=== PATIENT | male | born 1950 | race African-American/Black ===

== ENCOUNTER 2019-03-30 07:41 | Observation (INO) ==
[2019-03-30] MEDS ORDERED: ONDANSETRON 4 MG/2 ML VIAL IV STA (08:17)
[2019-03-30] MEDS ORDERED: SODIUM CHLORIDE 0.9% 1,000 ML IV STA (08:17)
[2019-03-30 08:24] LABS: Basophils % 0.3 % (0.0-0.8); Hematocrit 41.9 VOL% (42.0-52.0); Immature Granulocytes % 0.4 %; Immature Granulocytes Absolute 0.03 #; Lymphocytes # 0.8 10*3/uL (1.4-4.0); Lymphocytes % 10.2 % (21.2-54.2); Mean Corpuscular HGB Conc 33.4 GM/DL (32-36); Mean Corpuscular Volume 98.8 FL (87-102); Mean Platelet Volume 10.4 FL (9.6-12.0); Monocytes % 6.9 % (1.7-12.7); Neutrophils % 82.2 % (38.7-73.9); Platelet Count 177 T/CUMM (130-400); Red Blood Count 4.24 MC/CUMM (3.8-5.5); White Blood Count 7.4 T/CUMM (4-12)
[2019-03-30 08:42] LABS: Albumin 4.1 G/DL (3.4-5.0); Bilirubin,Total 0.4 MG/DL (0.2-1.0); Calcium 8.7 MG/DL (8.5-10.1); Osmolality,Calculated 270.4 MOS/KG (273-304); Total Protein 8.1 G/DL (6.4-8.3)
[2019-03-30 09:53] LABS: Apearance,Urine CLEAR (Clear); Bilirubin,Urine Negative (Negative); Blood, Urine Moderate mg/dL (Negative); Glucose,Urine (UA) >=500 mg/dL (Negative); Ketones,Urine 20 mg/dL (Negative); Mucus,Urine Occasional /LPF (Occasional); Nitrite,Urine Negative (Negative); Protein,Urine 30 MG/DL; RBC,Urine 3 /HPF (0-4); Squamous Epithelial Cell,Urine Occasional /HPF (0-10); Urine Color Yellow (Yellow); Urine Specific Gravity 1.026 (1.001-1.035); Urine Urobilinogen < 2.0 EU/DL (0.2-1.0); WBC,Urine <1 /HPF (0-6)
[2019-03-30] MEDS ORDERED: PROMETHAZINE 25 MG/1 ML VIAL IM STA (10:20)
[2019-03-30] MEDS ORDERED: MAGNESIUM SULF RIDER 4 GM in PREMIX 1 EACH IV PRN (10:33)
[2019-03-30] MEDS ORDERED: ONDANSETRON 4 MG/2 ML VIAL IV PRN (10:33)
[2019-03-30] MEDS ORDERED: MAGNESIUM SULF RIDER 2 GM in PREMIX 1 EACH IV PRN (10:33)
[2019-03-30] MEDS ORDERED: PROMETHAZINE 25 MG/1 ML VIAL IV PRN (10:33)
[2019-03-30] MEDS ORDERED: NICOTINE 21 MG/24 HR PATCH TRANSDERM PRN (10:33)
[2019-03-30] MEDS: hydroCHLOROthiazide 12.5 MG CAPSULE PO SCH (12:03)
[2019-03-30] MEDS: ASPIRIN EC 81 MG TABLET PO SCH (12:03)
[2019-03-30] MEDS: LOSARTAN 50 MG TABLET PO SCH (12:03)
[2019-03-30] MEDS: CIPROFLOXACIN INJ 400 MG in PREMIX 1 EACH IV SCH ×2 (12:05→22:56)
[2019-03-30] MEDS: DEXTROSE 5% NACL 0.45% 1,000 ML IV SCH (12:06)
[2019-03-30 13:04] LABS: Troponin I < 0.015 NG/ML (0.00-0.045)
[2019-03-30] MEDS: MORPHINE 4 MG/1 ML VIAL IV PRN ×2 (13:08→17:10)
[2019-03-30] MEDS: metroNIDAZOLE INJ 500 MG in PREMIX 1 EACH IV SCH ×2 (13:09→17:13)
[2019-03-30] MEDS ORDERED: hydrALAZINE 20 MG/1 ML VIAL IV PRN (13:27)
[2019-03-30] MEDS: PANTOPRAZOLE 40 MG VIAL IV SCH ×2 (14:07→21:06)
[2019-03-30 16:11] LABS: Troponin I 0.058 NG/ML (0.00-0.045)
[2019-03-30] MEDS ORDERED: ROSUVASTATIN 20 MG TABLET PO SCH (21:00)
[2019-03-31] MEDS: metroNIDAZOLE INJ 500 MG in PREMIX 1 EACH IV SCH ×2 (00:17→06:34)
[2019-03-31] MEDS: DEXTROSE 5% NACL 0.45% 1,000 ML IV SCH (04:01)
[2019-03-31 05:05] LABS: Basophils % 0.1 % (0.0-0.8); Hemoglobin 13.6 GM/DL (14.0-18.0); Immature Granulocytes % 0.3 %; Immature Granulocytes Absolute 0.03 #; Lymphocytes # 1.9 10*3/uL (1.4-4.0); Mean Corpuscular Volume 96.6 FL (87-102); Mean Platelet Volume 10.5 FL (9.6-12.0); Monocytes % 7.3 % (1.7-12.7); Neutrophils % 72.3 % (38.7-73.9); Platelet Count 163 T/CUMM (130-400); Red Blood Count 4.14 MC/CUMM (3.8-5.5); Red Cell Distribution Width 13.6 % (9.3-17.3); White Blood Count 9.7 T/CUMM (4-12)
[2019-03-31 05:38] LABS: Alanine Aminotransferase 36 U/L (16-61); Albumin 3.4 G/DL (3.4-5.0); Alkaline Phosphatase 60 U/L (45-117); Aspartate Amino Transferase 45 U/L (0-37); Bilirubin,Total < 0.39 MG/DL (0.2-1.0); Blood Urea Nitrogen 14 MG/DL (7-18); Calcium 8.4 MG/DL (8.5-10.1); Estimated Glom Filtration Rate 75 ML/MIN; Glucose 103 MG/DL (74-106); HDL Cholesterol 47 MG/DL (40-60); Osmolality,Calculated 268.2 MOS/KG (273-304); Risk Ratio 2.11; Total Protein 7.2 G/DL (6.4-8.3); Triglycerides 59 MG/DL (2-150); VLDL CHOLESTEROL 11.8 MG/DL
[2019-03-31 08:37] VITALS: BP 135/68
[2019-03-31] MEDS: PANTOPRAZOLE 40 MG VIAL IV SCH (08:44)
[2019-03-31] MEDS: ASPIRIN EC 81 MG TABLET PO SCH (08:44)
[2019-03-31] MEDS: hydroCHLOROthiazide 12.5 MG CAPSULE PO SCH (08:44)
[2019-03-31] MEDS: LOSARTAN 50 MG TABLET PO SCH (08:45)
== END 2019-03-31 10:06 | disposition home or self-care (01) ==
LOC: N.EDINP 07:41 → N.ED 07:41 → SUATTDRO 10:33 → N.EDINP 11:34 → N.2W 11:36
PROVIDERS: ADMIT Internal Medicine; ATTEND Internal Medicine

== ENCOUNTER 2019-04-01 00:04 | Observation (INO) ==
[2019-04-01] MEDS ORDERED: SODIUM CHLORIDE 0.9% 1,000 ML IV STA (00:50)
[2019-04-01] MEDS ORDERED: ONDANSETRON 4 MG/2 ML VIAL IV STA (00:50)
[2019-04-01] MEDS ORDERED: PANTOPRAZOLE 40 MG VIAL IV STA (00:50)
[2019-04-01 01:05] LABS: Basophils % 0.2 % (0.0-0.8); Hematocrit 43.2 VOL% (42.0-52.0); Hemoglobin 14.4 GM/DL (14.0-18.0); Immature Granulocytes % 0.5 %; Immature Granulocytes Absolute 0.05 #; Lymphocytes # 2.1 10*3/uL (1.4-4.0); Lymphocytes % 18.8 % (21.2-54.2); Mean Corpuscular HGB Conc 33.3 GM/DL (32-36); Mean Corpuscular Volume 99.1 FL (87-102); Mean Platelet Volume 10.1 FL (9.6-12.0); Monocytes % 8.1 % (1.7-12.7); Neutrophils % 72.4 % (38.7-73.9); Platelet Count 175 T/CUMM (130-400); Red Blood Count 4.36 MC/CUMM (3.8-5.5); Red Cell Distribution Width 13.4 % (9.3-17.3); White Blood Count 10.9 T/CUMM (4-12)
[2019-04-01] MEDS ORDERED: hydrALAZINE 20 MG/1 ML VIAL IV STA (01:05)
[2019-04-01] MEDS ORDERED: hydrALAZINE 20 MG/1 ML VIAL ONE (01:05)
[2019-04-01 01:24] LABS: Alanine Aminotransferase 42 U/L (16-61); Albumin 3.9 G/DL (3.4-5.0); Alkaline Phosphatase 64 U/L (45-117); Amylase 44 U/L (25-115); Aspartate Amino Transferase 61 U/L (0-37); Blood Urea Nitrogen 16 MG/DL (7-18); Calcium 8.9 MG/DL (8.5-10.1); Estimated Glom Filtration Rate 66 ML/MIN; Glucose 129 MG/DL (74-106); Osmolality,Calculated 266.5 MOS/KG (273-304); Total Protein 8.1 G/DL (6.4-8.3)
[2019-04-01] MEDS ORDERED: POTASSIUM CHLORIDE RIDER 20 MEQ in PREMIX 1 EACH IV STA ×2 (01:28→01:47)
[2019-04-01] MEDS ORDERED: POTASSIUM BICARB EFFERVESCENT 25 MEQ TABLET PO ONE (01:31)
[2019-04-01] MEDS ORDERED: DOCUSATE SODIUM 100 MG CAPSULE PO PRN (01:49)
[2019-04-01] MEDS ORDERED: PROMETHAZINE 25 MG/1 ML VIAL IM PRN (01:49)
[2019-04-01] MEDS ORDERED: NICOTINE 21 MG/24 HR PATCH TRANSDERM PRN (01:49)
[2019-04-01] MEDS ORDERED: ALBUTEROL 2.5 MG/3 ML NEB RESP TX PRN (01:49)
[2019-04-01] MEDS ORDERED: ACETAMINOPHEN 325 MG TABLET PO PRN (01:49)
[2019-04-01] MEDS ORDERED: guaiFENesin/DM ER 600-30 MG TABLET PO PRN (01:49)
[2019-04-01] MEDS ORDERED: diphenhydrAMINE CAP 25 MG CAPSULE PO PRN (01:49)
[2019-04-01] MEDS ORDERED: POTASSIUM CHLORIDE RIDER 10 MEQ in PREMIX 1 EACH IV PRN (02:01)
[2019-04-01] MEDS: ONDANSETRON 4 MG/2 ML VIAL IV PRN (02:24)
[2019-04-01] MEDS: MORPHINE 4 MG/1 ML VIAL IV PRN ×2 (02:25→07:09)
[2019-04-01] MEDS ORDERED: SODIUM CHLORIDE 0.9% 2,000 ML IV ONE (02:38)
[2019-04-01] MEDS ORDERED: PIPERACILLIN/TAZOBACTAM 3,375 MG in SODIUM CHLORIDE 0.9% 100 ML IV SCH (03:00)
[2019-04-01] MEDS ORDERED: INFLUENZA VIRUS VACCINE 0.5 ML SYRINGE IM ONE (03:44)
[2019-04-01] MEDS ORDERED: PNEUMOCOCCAL VACCINE (13 VALENT) 0.5 ML SYRINGE IM ONE (03:44)
[2019-04-01] MEDS: cefTRIAXone 1,000 MG in SYRINGE 1 EACH IV SCH (04:06)
[2019-04-01] MEDS: metroNIDAZOLE INJ 500 MG in PREMIX 1 EACH IV SCH ×3 (04:10→16:19)
[2019-04-01 04:51] LABS: Apearance,Urine CLEAR (Clear); Bilirubin,Urine Negative (Negative); Blood, Urine Small mg/dL (Negative); Glucose,Urine (UA) 150 mg/dL (Negative); Ketones,Urine 20 mg/dL (Negative); Mucus,Urine Occasional /LPF (Occasional); Nitrite,Urine Negative (Negative); Protein,Urine Negative; Squamous Epithelial Cell,Urine Occasional /HPF (0-10); Urine Color Yellow (Yellow); Urine Specific Gravity 1.017 (1.001-1.035); Urine Urobilinogen < 2.0 EU/DL (0.2-1.0); WBC,Urine <1 /HPF (0-6)
[2019-04-01 06:04] LABS: Albumin 3.1 G/DL (3.4-5.0); Bilirubin,Total 0.5 MG/DL (0.2-1.0); Calcium 7.6 MG/DL (8.5-10.1); Osmolality,Calculated 268.2 MOS/KG (273-304); Total Protein 6.6 G/DL (6.4-8.3)
[2019-04-01] MEDS: SODIUM CHLORIDE 0.9% 1,000 ML IV SCH ×2 (06:12→21:16)
[2019-04-01 06:13] LABS: Troponin I 0.586 NG/ML (0.00-0.045)
[2019-04-01 07:19] LABS: Basophils % 0.1 % (0.0-0.8); Hematocrit 37.4 VOL% (42.0-52.0); Hemoglobin 12.3 GM/DL (14.0-18.0); Immature Granulocytes % 0.4 %; Immature Granulocytes Absolute 0.04 #; Lymphocytes # 0.8 10*3/uL (1.4-4.0); Lymphocytes % 8.3 % (21.2-54.2); Mean Corpuscular HGB Conc 32.9 GM/DL (32-36); Mean Corpuscular Volume 99.5 FL (87-102); Mean Platelet Volume 10.6 FL (9.6-12.0); Monocytes % 11.4 % (1.7-12.7); Neutrophils % 79.8 % (38.7-73.9); Platelet Count 154 T/CUMM (130-400); Red Blood Count 3.76 MC/CUMM (3.8-5.5); Red Cell Distribution Width 13.5 % (9.3-17.3)
[2019-04-01] MEDS ORDERED: NITROGLYCERIN SL 0.4 MG TABLET SL ONE (07:36)
[2019-04-01] MEDS ORDERED: ASPIRIN CHEW 81 MG TABLET PO ONE ×3 (07:37→07:43)
[2019-04-01] MEDS ORDERED: MORPHINE 4 MG/1 ML VIAL IV PRN (07:43)
[2019-04-01] MEDS ORDERED: ALUM/MAG/SIMETH/LIDO VISC 1:1 30 ML BOTTLE PO ONE ×2 (07:43→08:00)
[2019-04-01] MEDS ORDERED: ENOXAPARIN 80 MG/0.8 ML SYRINGE SUBCUT ONE (08:30)
[2019-04-01] MEDS: NITROGLYCERIN 2% OINT 1 INCH/GM PACK TOP SCH ×3 (08:34→20:33)
[2019-04-01] MEDS: hydroCHLOROthiazide 12.5 MG CAPSULE PO SCH (08:35)
[2019-04-01] MEDS ORDERED: PANTOPRAZOLE 40 MG VIAL IV SCH (09:00)
[2019-04-01] MEDS ORDERED: ENOXAPARIN 40 MG/0.4 ML SYRINGE SUBCUT SCH (09:00)
[2019-04-01] MEDS ORDERED: ASPIRIN EC 81 MG TABLET PO SCH (09:00)
[2019-04-01] MEDS ORDERED: PROMETHAZINE INJ 25 MG in SODIUM CHLORIDE 0.9% 50 ML IV PRN (09:12)
[2019-04-01] MEDS ORDERED: MAGNESIUM SULF RIDER 4 GM in PREMIX 1 EACH IV PRN (09:19)
[2019-04-01] MEDS ORDERED: MAGNESIUM SULF RIDER 2 GM in PREMIX 1 EACH IV PRN (09:19)
[2019-04-01] MEDS: LOSARTAN 25 MG TABLET PO SCH (11:29)
[2019-04-01] MEDS: hydrALAZINE 20 MG/1 ML VIAL IV PRN (11:31)
[2019-04-01] MEDS ORDERED: NITROGLYCERIN 2% OINT 1 INCH/GM PACK TOP SCH (12:00)
[2019-04-01] MEDS ORDERED: THIAMINE INJ 100 MG, FOLIC ACID INJ 1 MG, MULTIVITAMIN INJ 10 ML in SODIUM CHLORIDE 0.9... IV SCH (13:00)
[2019-04-01] MEDS: [UNRECOGNIZED DRUG - OTHER] IV SCH (18:56)
[2019-04-01] MEDS: FOLIC ACID IV SCH (18:56)
[2019-04-01] MEDS: MULTIVITAMIN IV SCH (18:56)
[2019-04-01] MEDS: THIAMINE IV SCH (18:56)
[2019-04-01] MEDS: ZALEPLON 5 MG CAPSULE PO PRN (20:33)
[2019-04-01] MEDS: PANTOPRAZOLE 40 MG VIAL IV SCH (20:33)
[2019-04-01] MEDS: ROSUVASTATIN 20 MG TABLET PO SCH (20:33)
[2019-04-02] MEDS: metroNIDAZOLE INJ 500 MG in PREMIX 1 EACH IV SCH ×3 (00:55→16:01)
[2019-04-02 04:49] LABS: Basophils % 0.4 % (0.0-0.8); Hematocrit 35.4 VOL% (42.0-52.0); Hemoglobin 11.9 GM/DL (14.0-18.0); Immature Granulocytes % 0.2 %; Immature Granulocytes Absolute 0.01 #; Lymphocytes # 1.8 10*3/uL (1.4-4.0); Lymphocytes % 34.7 % (21.2-54.2); Mean Corpuscular HGB Conc 33.6 GM/DL (32-36); Mean Corpuscular Volume 98.3 FL (87-102); Mean Platelet Volume 10.3 FL (9.6-12.0); Monocytes % 12.5 % (1.7-12.7); Neutrophils % 52.2 % (38.7-73.9); Platelet Count 145 T/CUMM (130-400); Red Cell Distribution Width 13.5 % (9.3-17.3); White Blood Count 5.2 T/CUMM (4-12)
[2019-04-02 05:09] LABS: Calcium 7.6 MG/DL (8.5-10.1); Osmolality,Calculated 272.7 MOS/KG (273-304)
[2019-04-02 05:12] LABS: Atypical Lymphocytes Few; Hypochromasia 1+; Lymphocytes 40 % (20-55); Ovalocytes Slight; Platelet Estimate Normal; Segmented Neutrophils 54 % (50-85); Total Cells Counted 100
[2019-04-02] MEDS: NITROGLYCERIN 2% OINT 1 INCH/GM PACK TOP SCH ×4 (05:41→20:15)
[2019-04-02] MEDS: MORPHINE 4 MG/1 ML VIAL IV PRN ×2 (05:49→11:46)
[2019-04-02] MEDS: THIAMINE IV SCH ×2 (06:19→20:05)
[2019-04-02] MEDS: MULTIVITAMIN IV SCH ×2 (06:19→20:05)
[2019-04-02] MEDS: FOLIC ACID IV SCH ×2 (06:19→20:05)
[2019-04-02] MEDS: [UNRECOGNIZED DRUG - OTHER] IV SCH ×2 (06:19→20:05)
[2019-04-02] MEDS ORDERED: ONDANSETRON 4 MG/2 ML VIAL ONE (07:23)
[2019-04-02] MEDS: ONDANSETRON 4 MG/2 ML VIAL IV PRN (07:51)
[2019-04-02] MEDS ORDERED: propofoL 200 MG/20 ML VIAL IV ONE (09:00)
[2019-04-02] MEDS ORDERED: ASPIRIN EC 81 MG TABLET PO SCH (09:00)
[2019-04-02] MEDS ORDERED: PHENYLEPHRINE 1 MG/10 ML SYRINGE IV ONE (09:00)
[2019-04-02] MEDS ORDERED: LIDOCAINE 2% 5 ML VIAL ONE (09:00)
[2019-04-02] MEDS: hydroCHLOROthiazide 12.5 MG CAPSULE PO SCH (09:46)
[2019-04-02] MEDS: PANTOPRAZOLE 40 MG VIAL IV SCH ×2 (09:46→20:07)
[2019-04-02] MEDS: LOSARTAN 25 MG TABLET PO SCH (09:46)
[2019-04-02] MEDS: cefTRIAXone 1,000 MG in SYRINGE 1 EACH IV SCH (09:50)
[2019-04-02] MEDS: hydrALAZINE 20 MG/1 ML VIAL IV PRN (12:09)
[2019-04-02] MEDS: ZALEPLON 5 MG CAPSULE PO PRN (20:10)
[2019-04-02] MEDS: ROSUVASTATIN 20 MG TABLET PO SCH (20:11)
[2019-04-03] MEDS: metroNIDAZOLE INJ 500 MG in PREMIX 1 EACH IV SCH ×2 (01:08→09:13)
[2019-04-03 04:58] LABS: Basophils % 0.2 % (0.0-0.8); Eosinophils % 0.2 % (0.00-10.9); Hemoglobin 11.5 GM/DL (14.0-18.0); Immature Granulocytes % 0.2 %; Immature Granulocytes Absolute 0.01 #; Lymphocytes # 1.9 10*3/uL (1.4-4.0); Lymphocytes % 42.6 % (21.2-54.2); Mean Corpuscular HGB Conc 34.8 GM/DL (32-36); Mean Corpuscular Volume 95.4 FL (87-102); Mean Platelet Volume 10.7 FL (9.6-12.0); Monocytes % 14.9 % (1.7-12.7); Neutrophils % 41.9 % (38.7-73.9); Platelet Count 142 T/CUMM (130-400); Red Blood Count 3.46 MC/CUMM (3.8-5.5); Red Cell Distribution Width 13.4 % (9.3-17.3); White Blood Count 4.4 T/CUMM (4-12)
[2019-04-03 05:31] LABS: Calcium 7.9 MG/DL (8.5-10.1); Osmolality,Calculated 267.1 MOS/KG (273-304)
[2019-04-03 05:34] LABS: Macrocytosis Slight; Platelet Estimate Adequate
[2019-04-03] MEDS: THIAMINE IV SCH (06:37)
[2019-04-03] MEDS: [UNRECOGNIZED DRUG - OTHER] IV SCH (06:37)
[2019-04-03] MEDS: MULTIVITAMIN IV SCH (06:37)
[2019-04-03] MEDS: FOLIC ACID IV SCH (06:37)
[2019-04-03] MEDS: NITROGLYCERIN 2% OINT 1 INCH/GM PACK TOP SCH ×2 (06:37→09:16)
[2019-04-03] MEDS ORDERED: POTASSIUM CHLORIDE 20 MEQ TABLET PO ONE (06:39)
[2019-04-03] MEDS ORDERED: SCOPOLAMINE 1.5 MG PATCH TRANSDERM ONE (07:47)
[2019-04-03] MEDS: ONDANSETRON 4 MG/2 ML VIAL IV PRN (09:13)
[2019-04-03] MEDS: PANTOPRAZOLE 40 MG VIAL IV SCH (09:13)
[2019-04-03] MEDS: hydroCHLOROthiazide 12.5 MG CAPSULE PO SCH (09:15)
[2019-04-03] MEDS: LOSARTAN 25 MG TABLET PO SCH (09:15)
[2019-04-03] MEDS: cefTRIAXone 1,000 MG in SYRINGE 1 EACH IV SCH (09:16)
[2019-04-03] MEDS: hydrALAZINE 20 MG/1 ML VIAL IV PRN (10:03)
[2019-04-03 11:54] VITALS: BP 197/72
== END 2019-04-03 13:32 | disposition home or self-care (01) ==
LOC: N.ED 00:04 → N.EDINP 00:04 → N.2E 02:50
PROVIDERS: ADMIT Internal Medicine; ATTEND Internal Medicine